=== PATIENT | male | born 1945 | race African-American/Black ===

== ENCOUNTER 2017-02-11 20:19 | Emergency (ER) | payer MEDICARE, MEDICAID ==
[~2017-02-11] VITALS: Ht 182.9 cm; Wt 86.2 kg
[~2017-02-11 20:19] MED LIST: ABILIFY2 MG ORAL; CLONIDINE HCL0.1 MG PO; KLONOPIN1 MG ORAL; METFORMIN HCL500 M1 ORAL; PERCOCET1 TAB ORAL; QUETIAPINE FUMA25 MG ORAL; SERTRALINE HCL50 MG ORAL
[2017-02-11 21:03] VITALS: BP 147/87
--- NOTE | 2017-02-11 21:14 | Emergency Room Report ---
History of Present Illness General Chief Complaint: General Complaint Source: Patient, EMS (ANNE-MARIE SALAZAR M.D.) Present Illness HPI 71 YOM here for suicidal ideation. States he has felt suicidal for 2 months since fiance passed. Denies HUSSEIN WRAY. States his specific plan is to "take a bunch of [place]." Not providing much other info, but he is agreeable for medical clearance and PET. (ANNE-MARIE SALAZAR M.D.) Allergies: Coded Allergies: SULFA (SULFONAMIDE ANTIBIOTICS) (Verified Allergy, Mild, 04/22/14) Uncoded Allergies: Sulfa (Allergy, Mild, 04/22/14) Patient History Past Medical History: unable to obtain Past Surgical History: none Pertinent Family History: none Social History: Denies: alcohol use, drug use, smoking Immunizations: UTD Reviewed Nursing Documentation: PMH: Agreed, PSxH: Agreed (ANNE-MARIE SALAZAR M.D.) Nursing Documentation-PMH Past Medical History: No History, Except For Hx Cardiac Problems: No - ARTHRITIS Hx Hypertension: Yes Hx Diabetes: Yes History Of Psychiatric Problem: Yes - Bipolar 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 (ANNE-MARIE SALAZAR M.D.) Review of Systems All Other Systems: negative except mentioned in HPI (ANNE-MARIE SALAZAR M.D.) Physical Exam Vital Signs Date Time Temp Pulse Resp B/P Pulse Ox O2 Delivery O2 Flow Rate FiO2 02/11/17 20:16 98.1 110 16 126/84 98 Room Air Sp02 EP Interpretation: reviewed, abnormal General Appearance: normal inspection, well appearing, no apparent distress, alert, GCS 15, non-toxic Head: normocephalic, atraumatic Eyes: bilateral eye EOMI, bilateral eye PERRL ENT: normal ENT inspection, hearing grossly normal, normal voice Neck: normal inspection, full range of motion, supple, no bony tend Respiratory: normal inspection, lungs clear, normal breath sounds, no respiratory distress, no retraction, no wheezing Cardiovascular #1: regular rate, rhythm, no edema Gastrointestinal: normal inspection, normal bowel sounds, non tender, soft, no guarding, no hernia Genitourinary: no CVA tenderness Musculoskeletal: normal inspection, back normal, normal range of motion, Victorino' s Sign negative Neurologic: normal inspection, alert, oriented x3, responsive, 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 Speaks in short phrases Skin: normal inspection, normal color, no rash Lymphatic: normal inspection (ANNE-MARIE SALAZAR M.D.) Medical Decision Making Diagnostic Impression: Primary Impression: Suicidal ideation Additional Impression: medically cleared ER Course Will medically clear patient for PET given SI with a specific plan Currently stable in ED VSS. Afebrile Low suspicion for acute medical process at this time PLAN: Labs, med clearance Endorsed to Dr Guerrero to followup labs, address as necessary, and medically clear patient (ANNE-MARIE SALAZAR M.D.) ER Course Please refer to the initial note for the history exam and presentation Patient's blood work at this time is obtained Patient's further medically cleared At this time requires further psychiatric evaluation team consultation pt placed on 5150 by PET team and requires further psychiatric care Labs Test 02/11/17 21:30 02/11/17 22:16 White Blood Count 9.6 K/UL (4.8-10.8) Red Blood Count 4.82 M/UL (4.70-6.10) Hemoglobin 13.7 G/DL (14.2-18.0) Hematocrit 42.9 % (42.0-52.0) Mean Corpuscular Volume 89 FL (80-99) Mean Corpuscular Hemoglobin 28.3 PG (27.0-31.0) Mean Corpuscular Hemoglobin Concent 31.8 G/DL (32.0-36.0) Red Cell Distribution Width 14.2 % (11.6-14.8) Platelet Count 121 K/UL (150-450) Mean Platelet Volume 9.7 FL (6.5-10.1) Neutrophils (%) (Auto) 69.9 % (45.0-75.0) Lymphocytes (%) (Auto) 20.6 % (20.0-45.0) Monocytes (%) (Auto) 7.5 % (1.0-10.0) Eosinophils (%) (Auto) 1.1 % (0.0-3.0) Basophils (%) (Auto) 0.9 % (0.0-2.0) Sodium Level 137 mEQ/L (135-145) Potassium Level 3.7 mEQ/L (3.4-4.9) Chloride Level 94 mEQ/L (98-107) Carbon Dioxide Level 25 mEQ/L (20-30) Anion Gap 18 (5-15) Blood Urea Nitrogen 16 mg/dL (7-23) Creatinine 0.9 mg/dL (0.7-1.2) Estimat Glomerular Filtration Rate mL/min (>60) Glucose Level 148 mg/dL (74-106) Calcium Level 9.8 mg/dL (8.6-10.2) Total Bilirubin 1.6 mg/dL (0.0-1.2) Direct Bilirubin 0.5 mg/dL (0.1-0.3) Aspartate Amino Transf (AST/SGOT) 84 U/L (5-40) Alanine Aminotransferase (ALT/SGPT) 103 U/L (3-41) Alkaline Phosphatase 60 U/L (40-129) Total Protein 7.5 g/dL (6.6-8.7) Albumin 4.1 g/dL (3.5-5.2) Globulin 3.4 g/dL Albumin/Globulin Ratio 1.2 (1.0-2.7) Salicylates Level < 1 mg/dL (10-30) Acetaminophen Level < 10 ug/mL (10-30) Serum Alcohol < 10 mg/dL Urine Color Yellow Urine Appearance Clear Urine pH 5 (4.5-8.0) Urine Specific Sidney 1.020 (1.005-1.035) Urine Protein 2+ (NEGATIVE) Urine Glucose (UA) Negative (NEGATIVE) Urine Ketones 4+ (NEGATIVE) Urine Occult Blood 1+ (NEGATIVE) Urine Nitrite Negative (NEGATIVE) Urine Bilirubin 1+ (NEGATIVE) Urine Ictotest Negative Urine Urobilinogen 8 MG/DL (0.0-1.0) Urine Leukocyte Esterase 1+ (NEGATIVE) Urine RBC 0-2 /HPF (0 - 0) Urine WBC 2-4 /HPF (0 - 0) Urine Squamous Epithelial Cells None /LPF (NONE/OCC) Urine Bacteria Moderate /HPF (NONE) Urine Opiates Screen Negative (NEGATIVE) Urine Barbiturates Screen Negative (NEGATIVE) Phencyclidine (PCP) Screen Negative (NEGATIVE) Urine Amphetamines Screen Negative (NEGATIVE) Urine Benzodiazepines Screen Negative (NEGATIVE) Urine Cocaine Screen Positive (NEGATIVE) Urine Marijuana (THC) Screen Negative (NEGATIVE) (CARLITO CAMACHO D.O.) Last Vital Signs Date Time Temp Pulse Resp B/P Pulse Ox O2 Delivery O2 Flow Rate FiO2 02/11/17 21:03 98.0 105 16 147/87 98 Room Air (ANNE-MARIE SALAZAR M.D.) Status: improved (CARLITO CAMACHO D.O.) Disposition: XFER TO PSYCH HOSP/UNIT Condition: Stable ANNE-MARIE SALAZAR M.D. Feb 11, 2017 21:14 CARLITO CAMACHO D.O. Feb 12, 2017 01:36
[2017-02-11 21:46] LABS: BASOPHILS % (AUTO) 0.9 % (0.0-2.0); EOSINOPHILS % (AUTO) 1.1 % (0.0-3.0); LYMPHOCYTES % (AUTO) 20.6 % (20.0-45.0); MEAN CORPUSCULAR HEMOGLOBIN 28.3 PG (27.0-31.0); MEAN CORPUSCULAR HGB CONC 31.8 G/DL (32.0-36.0); MEAN CORPUSCULAR VOLUME 89 FL (80-99); MEAN PLATELET VOLUME 9.7 FL (6.5-10.1); MONOCYTES % (AUTO) 7.5 % (1.0-10.0); NEUTROPHILS % (AUTO) 69.9 % (45.0-75.0); PLATELET COUNT 121 K/UL (150-450); RED BLOOD COUNT 4.82 M/UL (4.70-6.10); RED CELL DISTRIBUTION WIDTH 14.2 % (11.6-14.8); WHITE BLOOD COUNT 9.6 K/UL (4.8-10.8)
[2017-02-11 21:58] LABS: ACETAMINOPHEN < 10 ug/mL (10-30); ALANINE AMINOTRANSFERASE 103 U/L (3-41); ALBUMIN/GLOBULIN RATIO 1.2 (1.0-2.7); ALCOHOL < 10 mg/dL; ANION GAP 18 (5-15); ASPARTATE AMINO TRANSFERASE 84 U/L (5-40); CALCIUM 9.8 mg/dL (8.6-10.2); CARBON DIOXIDE 25 mEQ/L (20-30); CHLORIDE 94 mEQ/L (98-107); CREATININE 0.9 mg/dL (0.7-1.2); HEMOLYSIS 4; POTASSIUM 3.7 mEQ/L (3.4-4.9); SODIUM 137 mEQ/L (135-145); TOTAL PROTEIN 7.5 g/dL (6.6-8.7)
[2017-02-11 22:23] LABS: BILIRUBIN,DIRECT 0.5 mg/dL (0.1-0.3)
[2017-02-11 22:35] LABS: APPEARANCE,URINE CLEAR; KETONES,URINE 4+ (NEGATIVE); LEUKOCYTE ESTERASE ,URINE 1+ (NEGATIVE); NITRITE,URINE NEGATIVE (NEGATIVE); PH,URINE 5 (4.5-8.0); PROTEIN,URINE 2+ (NEGATIVE); UROBILINOGEN,URINE 8 MG/DL (0.0-1.0)
[2017-02-11 22:40] LABS: RBC,URINE 0-2 /HPF (0 - 0)
[2017-02-11 22:41] LABS: BACTERIA,URINE MODERATE /HPF; ICTOTEST NEGATIVE
[2017-02-12] VITALS (11 sets, daily range): BP systolic 118–140; BP diastolic 73–89
[2017-02-13] VITALS (7 sets, daily range): BP systolic 120–148; BP diastolic 72–87
[2017-02-13] MEDS ORDERED: Milk of Magnesia 30ml Ud ORAL PRN (10:45)
[2017-02-13] MEDS ORDERED: Zolpidem 5mg tab ORAL PRN (10:45)
[2017-02-13] MEDS ORDERED: IBUPROFEN600 MG ORAL (15:05)
--- NOTE | 2017-02-13 18:52 | Cardiology Report ---
APPROVED REPORT EKG Measurement Heart [id number] Normal sinus rhythm Possible Left atrial enlargement Possible Anterior infarct, age undetermined Abnormal ECG
--- NOTE | 2017-02-14 00:48 | History and Physical Report ---
DATE OF ADMISSION: 02/11/2017 CHIEF COMPLAINT AND REASON FOR HOSPITALIZATION: The patient is a 71-year-old male, who is admitted with suicidal ideations. HISTORY OF PRESENT ILLNESS: The patient is a 71-year-old man, who apparently brought himself into the hospital with feeling depression and told in the emergency room physicians that he has suicidal ideations. He was placed on a 5150 hold and will be transferred to a psychiatric facility. The patient admits to feeling depressed. Apparently, his fiancee recently . He was looking apparently to find the location of a friend, was lost, was able to bring himself to [facility] emergency room voluntarily. The patient has a history of back pain and osteoarthritis. He uses [facility] intermittently. He says he is physically feeling well. ALLERGIES: None known. MEDICATIONS: Per the computer, he was on Abilify, Klonopin, clonidine, metformin, oxycodone with Tylenol, Seroquel, and sertraline. He told me he is not taking any medications recently. 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 HABITS: He is a current smoker. Alcohol, social denies any drugs. SURGERIES: Low back surgery and surgery on his feet. SYSTEM REVIEW: HEAD, EYES, EARS, NOSE, AND THROAT: He is blind in his left eye and right eye vision is good. Hearing is good. ENDOCRINE: He denies diabetes or thyroid disease, but there is a listed metformin on his med list. PULMONARY: History of cigarette smoking. Denied shortness of breath or asthma. CARDIAC: Denies angina and mild palpitations. GASTROINTESTINAL: Denies gastrointestinal bleeding, ulcers, or abdominal pain. GENITOURINARY: No dysuria, hematuria, or kidney stones. He has nocturia one to two times. MUSCULOSKELETAL: Arthritis as above. NEUROLOGIC: Denies CVA, syncope, or seizures. PHYSICAL EXAMINATION: GENERAL: The patient is alert, well-developed man, in no acute distress. He is somewhat anxious. VITAL SIGNS: Temperature 98.2 pulse 82, respirations 16, and blood pressure 126/73. HEAD, EYES, EARS, NOSE, AND THROAT: There is a left eye opacity. Hearing is good. Throat is clear. NECK: No adenopathy. LUNGS: Clear. HEART: Regular rhythm. No murmur. ABDOMEN: Soft. No organomegaly. No masses. EXTREMITIES: No edema, cyanosis, or clubbing. No swollen joints. NEUROLOGIC: He is alert and oriented. Speech is clear. There is mild ptosis of the left eyelid and left eye abnormality as above. Ocular motions intact in all directions, mild symmetric, tongue is midline. He moves all extremities equally. LABORATORY DATA: Pertinent labs showed a normal CBC, normal electrolytes, glucose 148, mild elevation of liver enzymes and bilirubin 1.6. Toxicology shows positive cocaine screen. Otherwise, negative. The urinalysis is negative. IMPRESSION: 1. Reported suicidal ideation. 2. Depression. 3. Positive cocaine screen. 4. History of taking multiple medications, not clear if any of these are recent. 5. Possible underlying mood disorder. 6. Possible substance abuse more than the patient admits to. PLAN: The patient is placed on a 5150 hold. Psychiatrist will see the patient. We will observe the patient for any complications of the above. His liver enzymes could be due to substance abuse, alcohol abuse, and he does not have any abdominal pain at this time. So, we will treat the patient symptomatically any further problems. Thank you so much for allowing me to participate in the care of this patient. Brian Barbosa M.D. DR: KENNY JOB#: [id number] CC:
--- NOTE | 2017-02-14 00:58 | Consultation ---
DATE OF CONSULTATION: 02/13/2017 PSYCHIATRIC CONSULTATION: CONSULTING PHYSICIAN: Marina Goddard M.D. ATTENDING PHYSICIAN: Kimberley Jackson M.D. CHIEF COMPLAINT AND HISTORY OF PRESENT ILLNESS: This is a 71-year-old male with history of psychiatric illness, was admitted to the hospital with a chief complaint of suicidal ideation. During the evaluation, there was a description to see whether there is a history that he presented with. First, he stated that he was wandering around a street, looking for his girlfriend, he got lost, and it became very late and dark, therefore he was brought into the emergency room as he was panicky and he was scared and to the emergency room doctor, he stated that he has been feeling suicidal as his fiancee two months ago. During the evaluation, he denied any suicidal or homicidal ideation, depressive, manic, or psychotic symptoms. He stated that he has a psychiatrist, called Dr. Li Christianson that he sees in [place] in every few months. He stated that he has been going to him for the past several years. He currently is not taking any medication and he stated "I am not leaving [place] and I just got some panic attacks at that time and feeling anxious". The patient was placed on 5150 hold by PET team. During the evaluation, he was engaged, cooperative, and appropriate. PAST PSYCHIATRIC HISTORY: He denied any past suicide attempt. He has had one psychiatric hospitalization in 2016, when he saw Dr. Christianson. PAST MEDICAL HISTORY: Significant for hypertension. He is blind on the left side. MEDICATIONS: He was unable to provide any history in regards to his medications. He stated that he does not take any medications. ALLERGIES: Sulfa. SOCIAL HISTORY: The patient has a history of drug use as well as alcohol use. MENTAL STATUS EXAMINATION: The patient is alert and oriented x4. Mood is euthymic. Affect is full range. Thought process was linear and goal oriented. Thought content, no suicidal or homicidal ideation. No psychotic symptoms. Cognition is intact. Insight and judgment are fair. ASSESSMENT: AXIS I Mood disorder, not otherwise specified. AXIS II Deferred. AXIS III As above. AXIS IV Low. AXIS V Global assessment of functioning is 70. PLAN: 1. We will discontinue 5150 hold. 2. The patient was discharged and he will follow with Dr. Christianson at his office in [place]. He did not require any medication. He stated that he does not take any medication at this time. Marina Goddard M.D. DR: Eusebio JOB#: [id number] CC:
[2017-02-14] MEDS ORDERED: ARIPiprazole 2mg tab ORAL SCH (09:00)
[2017-02-14] MEDS ORDERED: Sertraline 50mg tab ORAL SCH (09:00)
== END 2017-02-13 15:19 | disposition home or self-care (01) ==
LOC: EDBD 20:19 → EMR 22:21 → EDBEDREQ 02-13 08:54 → EMR 02-13 15:19
DX: R45.851 Suicidal ideations (principal); I10 Essential (primary) hypertension; E11.9 Type 2 diabetes mellitus without complications; H54.42 Blindness, left eye, normal vision right eye; Z88.2 Allergy status to sulfonamides
CPT/HCPCS: 36415; 80053; 80300; 81003; 82248; 85025; 87086; 93005; 99285; G0480; 80329

== ENCOUNTER 2017-09-02 01:18 | Emergency (ER) | payer MEDICARE, MEDICAID ==
[~2017-09-02] VITALS: Ht 175.3 cm; Wt 81.6 kg
[~2017-09-02 01:18] MED LIST changes: +IBUPROFEN600 MG ORAL
[2017-09-02] MEDS ORDERED: LATUDA120 MG PO (01:30)
[2017-09-02 01:55] VITALS: BP 138/87
--- NOTE | 2017-09-02 03:50 | Emergency Room Report ---
History of Present Illness General Chief Complaint: Behavioral Complaint Source: Patient Present Illness HPI Is a 72-year-old male with history bipolar and cocaine abuse. Patient said he' s been clean for 6 months now. He said he felt depressed and suicidal because he just buried his girlfriend about a month ago. Denies any fever chills denies any nausea vomiting. No particular plan. Denies any other complaint. Said he hasn't been to a hospital for several months. 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 Review of Systems ENT: Denies: sore throat Cardiovascular: Denies: chest pain, palpitations Gastrointestinal/Abdominal: Denies: nausea, vomiting, diarrhea Musculoskeletal: Denies: back problems Skin: Denies: rash Neurological: Denies: LINDER, seizures All Other Systems: negative except mentioned in HPI Physical Exam Vital Signs Date Time Temp Pulse Resp B/P (MAP) Pulse Ox O2 Delivery O2 Flow Rate FiO2 09/02/17 01:24 97.5 71 16 138/87 100 Room Air vitals normal Sp02 EP Interpretation: reviewed, normal General Appearance: alert/responsive, no apparent distress, non-toxic Head: normocephalic, atraumatic Eyes: PERRL, EOMI ENT: oropharynx normal Neck: supple/symm/no masses Respiratory: effort normal, no rhonchi, no wheezing Cardiovascular: no murmur, gallop, rub Gastrointestinal: non-tender, no mass, non-distended, no rebound/guarding, normal bowel sounds Musculoskeletal: gait & station normal Neurologic: oriented x3, sensory intact, motor strength/tone normal Suicide Risk Assessment: Suicidal Ideation: Yes Had intent to initiate attempt: No Pt's plan for suicide attempt: No Has means to complete attempt: No Skin: no rash, normal palpation Medical Decision Making Diagnostic Impression: Primary Impression: Depression Qualified Codes: F32.9 - Major depressive disorder, single episode, unspecified Additional Impressions: Drug abuse Suicidal ideation ER Course Patient presents with alleged suicidal thoughts. He's been here several times and has the same story of his girlfriend recently and causing his depression. He is no longer suicidal. He slept through the night. I suspect that he does want a place to sleep. As he is no longer suicidal we'll discharge home. This patient is a chronic risk of self injury due to poor impulse control, limited coping skills, and judgment intermittently impaired by intoxication. I believe that the available clinical evidence to suggest that these characteristics derived primarily from personality disorder and are likely very stable over time. Hospitalization would likely attenuate risk of self-harm only during long term period, without lasting risk reduction. Serious self-harm , while possible, would likely be inadvertent, and because of impulsivity, and foreseeable. For these reasons, I do not believe hospitalization would provide meaningful reduction in risk of self-harm. Last Vital Signs Date Time Temp Pulse Resp B/P (MAP) Pulse Ox O2 Delivery O2 Flow Rate FiO2 09/02/17 01:55 97.5 76 16 138/87 100 Room Air Status: improved Disposition: HOME, SELF-CARE Condition: Stable Referrals: NOT CHOSEN IPA/,REFERRING (PCP) Patient Instructions: Self-Destructive Behavior Additional Instructions: Stop using drugs. Followup with your DrLalitha in 3-5 days. Followup with your . mental health in a week. Return if worse. DARWIN MAHER M.D. Sep 02, 2017 03:50
[2017-09-02 05:36] VITALS: BP 136/82
== END 2017-09-02 05:51 | disposition home or self-care (01) ==
LOC: EMR 02:00
DX: F32.9 Major depressive disorder, single episode, unspecified (principal); R45.851 Suicidal ideations; F14.10 Cocaine abuse, uncomplicated; I10 Essential (primary) hypertension; E11.9 Type 2 diabetes mellitus without complications; Z88.2 Allergy status to sulfonamides
CPT/HCPCS: 99282

== ENCOUNTER 2017-09-23 07:38 | Emergency (ER) | payer MEDICARE, MEDICAID ==
[~2017-09-23] VITALS: Ht 175.3 cm; Wt 81.6 kg
[~2017-09-23 07:38] MED LIST changes: +LATUDA120 MG PO
[2017-09-23 07:48] VITALS: BP 170/95
[2017-09-23 08:32] LABS: BASOPHILS % (AUTO) 1.1 % (0.0-2.0); EOSINOPHILS % (AUTO) 0.7 % (0.0-3.0); LYMPHOCYTES % (AUTO) 16.3 % (20.0-45.0); MEAN CORPUSCULAR HEMOGLOBIN 29.7 PG (27.0-31.0); MEAN CORPUSCULAR HGB CONC 32.1 G/DL (32.0-36.0); MEAN CORPUSCULAR VOLUME 93 FL (80-99); MEAN PLATELET VOLUME 10.5 FL (6.5-10.1); MONOCYTES % (AUTO) 7.2 % (1.0-10.0); NEUTROPHILS % (AUTO) 74.7 % (45.0-75.0); PLATELET COUNT 152 K/UL (150-450); WHITE BLOOD COUNT 6.9 K/UL (4.8-10.8)
[2017-09-23 08:47] LABS: ALANINE AMINOTRANSFERASE 92 U/L (12-78); ALBUMIN/GLOBULIN RATIO 0.9 (1.0-2.7); ANION GAP 9 mmol/L (5-15); ASPARTATE AMINO TRANSFERASE 63 U/L (15-37); CALCIUM 9.5 MG/DL (8.5-10.1); CARBON DIOXIDE 28 MMOL/L (21-32); CHLORIDE 104 MMOL/L (98-107); POTASSIUM 4.1 MMOL/L (3.5-5.1); SODIUM 141 MMOL/L (136-145); TOTAL PROTEIN 7.8 G/DL (6.4-8.2)
[2017-09-23 08:51] LABS: ACETAMINOPHEN < 10 MCG/ML (10-30); ALCOHOL < 0 mg/dL
[2017-09-23 13:47] VITALS: BP 150/79
[2017-09-23 13:56] VITALS: BP 150/79
--- NOTE | 2017-09-23 15:26 | Emergency Room Report ---
History of Present Illness General Chief Complaint: Behavioral Complaint Source: Patient Present Illness HPI 72-year-old male presents ED for evaluation. Patient states he is feeling depressed and wants to hurt himself. Does not have a plan. States that his 4 months ago and he is having stress in his life. Patient admits to cocaine use. Patient states he is on psychiatric medications but is noncompliant with them. He denies hearing voices. No other aggravating relieving factors. Denies any other associated symptoms Allergies: Coded Allergies: SULFA (SULFONAMIDE ANTIBIOTICS) (Verified Allergy, Mild, 04/22/14) SULFUR (Unverified Allergy, Unknown, 09/23/17) Uncoded Allergies: Sulfa (Allergy, Mild, 04/22/14) Patient History Past Medical History: HTN, CVA/TIA, psych hx Past Surgical History: none Pertinent Family History: none Social History: Reports: drug use, Denies: smoking, alcohol use Immunizations: UTD Reviewed Nursing Documentation: PMH: Agreed, PSxH: Agreed Nursing Documentation-PMH Past Medical History: No History, Except For Hx Cardiac Problems: No - ARTHRITIS Hx Hypertension: Yes Hx Diabetes: Yes History Of Psychiatric Problem: Yes - Bipolar 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 Hx Cerebrovascular Accident: Yes Review of Systems All Other Systems: negative except mentioned in HPI Physical Exam Vital Signs Date Time Temp Pulse Resp B/P (MAP) Pulse Ox O2 Delivery O2 Flow Rate FiO2 09/23/17 07:28 98.6 74 16 170/95 99 Room Air Sp02 EP Interpretation: reviewed, normal General Appearance: no apparent distress, alert, GCS 15, non-toxic Head: normocephalic, atraumatic Eyes: bilateral eye normal inspection, bilateral eye PERRL ENT: hearing grossly normal, normal pharynx, no angioedema, normal voice Neck: full range of motion, supple/symm/no masses Respiratory: chest non-tender, lungs clear, normal breath sounds, speaking full sentences Cardiovascular #1: regular rate, rhythm, no edema Cardiovascular #2: 2+ carotid (R), 2+ carotid (L), 2+ radial (R), 2+ radial (L) , 2+ dorsalis pedis (R), 2+ dorsalis pedis (L) Gastrointestinal: normal bowel sounds, non tender, soft, non-distended, no guarding, no rebound Rectal: deferred Genitourinary: normal inspection, no CVA tenderness Musculoskeletal: back normal, gait/station normal, normal range of motion, non- tender Neurologic: alert, oriented x3, responsive, motor strength/tone normal, sensory intact, speech normal Psychiatric: judgement/insight normal, memory normal, mood/affect normal, no suicidal/homicidal ideation Reflexes: 3+ bicep (R), 3+ bicep (L), 3+ tricep (R), 3+ tricep (L), 3+ knee (R) , 3+ knee (L) Skin: normal color, no rash, warm/dry, well hydrated Lymphatic: no adenopathy Medical Decision Making Diagnostic Impression: Primary Impression: Depression Qualified Codes: F32.9 - Major depressive disorder, single episode, unspecified Additional Impression: Drug abuse ER Course Hospital Course 72-year-old M resents ED feeling depressed and wanted to hurt himself. Differential diagnoses include: Psychosis, EtOH, drug abuse Clinical course patient placed on stretcher. On nurse monitoring. After initial history and physical ordered labs Labs reviewed-electrolytes okay, no leukocytosis, hemoglobin/hematocrit stable, tox panel + cocaine Patient allowed to sleep in ED. On reassessment patient feels better wishes to be discharged. No longer feeling suicidal or depressed. Reviewed EMR patient has been here previously with similar presentation. Patient allowed to sleep and then changes his story. I do not believe patient requires emergent psychiatric evaluation at this time Encouraged patient to take his psychiatric medications as prescribed and not when he feels like it. I also encouraged patient to stop cocaine use i. I feel this is a highly complex case requiring extensive working including EKG/Rhythm strip, Xray/CT/US, Blood/urine lab work, repeat exams while in ED, and administration of strong opiates/narcotics for pain control, admission to hospital or close patient follow up. Diagnosis -depression, drug abuse Stable and discharged to home. Followup with PMD. Return to ED if symptoms recur or worsen Labs Test 09/23/17 08:00 White Blood Count 6.9 K/UL (4.8-10.8) Red Blood Count 4.90 M/UL (4.70-6.10) Hemoglobin 14.6 G/DL (14.2-18.0) Hematocrit 45.3 % (42.0-52.0) Mean Corpuscular Volume 93 FL (80-99) Mean Corpuscular Hemoglobin 29.7 PG (27.0-31.0) Mean Corpuscular Hemoglobin Concent 32.1 G/DL (32.0-36.0) Red Cell Distribution Width 15.0 % (11.6-14.8) Platelet Count 152 K/UL (150-450) Mean Platelet Volume 10.5 FL (6.5-10.1) Neutrophils (%) (Auto) 74.7 % (45.0-75.0) Lymphocytes (%) (Auto) 16.3 % (20.0-45.0) Monocytes (%) (Auto) 7.2 % (1.0-10.0) Eosinophils (%) (Auto) 0.7 % (0.0-3.0) Basophils (%) (Auto) 1.1 % (0.0-2.0) Sodium Level 141 MMOL/L (136-145) Potassium Level 4.1 MMOL/L (3.5-5.1) Chloride Level 104 MMOL/L (98-107) Carbon Dioxide Level 28 MMOL/L (21-32) Anion Gap 9 mmol/L (5-15) Blood Urea Nitrogen 19 mg/dL (7-18) Creatinine 1.0 MG/DL (0.55-1.30) Estimat Glomerular Filtration Rate mL/min (>60) Glucose Level 203 MG/DL (74-106) Calcium Level 9.5 MG/DL (8.5-10.1) Total Bilirubin 0.8 MG/DL (0.2-1.0) Aspartate Amino Transf (AST/SGOT) 63 U/L (15-37) Alanine Aminotransferase (ALT/SGPT) 92 U/L (12-78) Alkaline Phosphatase 72 U/L (46-116) Total Protein 7.8 G/DL (6.4-8.2) Albumin 3.6 G/DL (3.4-5.0) Globulin 4.2 g/dL Albumin/Globulin Ratio 0.9 (1.0-2.7) Salicylates Level < 2.8 ug/mL (2.8-20) Urine Opiates Screen Negative (NEGATIVE) Acetaminophen Level < 10 MCG/ML (10-30) Urine Barbiturates Screen Negative (NEGATIVE) Phencyclidine (PCP) Screen Negative (NEGATIVE) Urine Amphetamines Screen Negative (NEGATIVE) Urine Benzodiazepines Screen Negative (NEGATIVE) Urine Cocaine Screen Positive (NEGATIVE) Urine Marijuana (THC) Screen Negative (NEGATIVE) Serum Alcohol < 0 mg/dL Last Vital Signs Date Time Temp Pulse Resp B/P (MAP) Pulse Ox O2 Delivery O2 Flow Rate FiO2 09/23/17 14:02 98.5 09/23/17 13:56 83 17 150/79 99 Room Air Status: improved Disposition: HOME, SELF-CARE Condition: Stable Referrals: NOT CHOSEN IPA/,REFERRING (PCP) Patient Instructions: Stimulant Use Disorder-Cocaine JUANJOSE CONNER M.D. Sep 23, 2017 15:26
== END 2017-09-23 14:09 | disposition home or self-care (01) ==
LOC: EDBD 07:38 → EMR 08:53
DX: F32.9 Major depressive disorder, single episode, unspecified (principal); Z91.14 Patient's other noncompliance with medication regimen; Z88.2 Allergy status to sulfonamides; I10 Essential (primary) hypertension; E11.9 Type 2 diabetes mellitus without complications; F31.9 Bipolar disorder, unspecified; H54.40 Blindness, one eye, unspecified eye; Z86.73 Personal history of transient ischemic attack (TIA), and cerebral infarction without residual deficits
CPT/HCPCS: 36415; 80053; 80307; 85025; 99283; G0480; 80329

== ENCOUNTER 2017-10-23 02:09 | Emergency (ER) | payer MEDICARE, MEDICAID ==
[~2017-10-23] VITALS: Ht 175.3 cm; Wt 81.6 kg
--- NOTE | 2017-10-23 02:16 | Emergency Room Report ---
History of Present Illness General Source: Patient (Gerald Gibson) Present Illness HPI Patient is a 72-year-old male presented to increased depression and suicidal thoughts. Patient had prior history of psychiatric disease and is currently on Latuda as well as the medications for rheumatoid arthritis. Patient reports having had gradual onset of depression over the past few months. He reports having intermittent suicidal thoughts.He denies auditory or visual hallucinations. 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 Hx Cerebrovascular Accident: Yes (Gerald Gibson) Review of Systems All Other Systems: negative except mentioned in HPI (Gerald Gibson) Physical Exam Sp02 EP Interpretation: reviewed, normal General Appearance: alert/responsive, no apparent distress, GCS 15, non-toxic Head: atraumatic Eyes: lids + conjunctiva normal, other - left eye blind ENT: hearing intact, no angioedema Neck: supple/symm/no masses, no meningismus Respiratory: effort normal, no wheezing, chest symmetrical Cardiovascular: regular rate, rhythm, no edema Cardiovascular #2: 2+ carotid (R), 2+ carotid (L), 2+ dorsalis pedis (R), 2+ dorsalis pedis (L) Gastrointestinal: non-tender, no mass, non-distended, no rebound/guarding, normal bowel sounds Musculoskeletal: strength & tone normal, normal ROM, non-tender, other - antalgic gait Neurologic: normal inspection, CN II-XII intact, oriented x3, sensory intact, normal speech Skin: no rash, well hydrated Lymphatic: normal inspection (Gerald Gibson) Medical Decision Making Diagnostic Impression: Primary Impression: Drug abuse Additional Impression: Depression Qualified Codes: F32.89 - Other specified depressive episodes ER Course Patient presented for suicidal thoughts. Differential diagnosis included wasn' t limited to the substance abuse,malingering, depression, psychosis among others.Because of complexity of patient's case laboratory testing were ordered. Laboratory testing showed evidence of a recent cocaine use as well as marijuana. The patient's medical record was reviewed and he was noted to have similar episodes in which he stated he was suicidal with a similar story a recent . Patient appears to be calm and cooperative. He does not appear to be responding to internal stimuli. Laboratory testing was otherwise unremarkable. The patient will be observed in the emergency department until morning. The patient reportedly had similar visits in which he was noted to have no suicidal thoughts after sleeping and more sober Labs Test 10/23/17 02:30 10/23/17 03:22 White Blood Count 5.5 K/UL (4.8-10.8) Red Blood Count 4.43 M/UL (4.70-6.10) Hemoglobin 12.9 G/DL (14.2-18.0) Hematocrit 39.6 % (42.0-52.0) Mean Corpuscular Volume 89 FL (80-99) Mean Corpuscular Hemoglobin 29.1 PG (27.0-31.0) Mean Corpuscular Hemoglobin Concent 32.6 G/DL (32.0-36.0) Red Cell Distribution Width 13.1 % (11.6-14.8) Platelet Count 140 K/UL (150-450) Mean Platelet Volume 10.4 FL (6.5-10.1) Neutrophils (%) (Auto) 58.2 % (45.0-75.0) Lymphocytes (%) (Auto) 28.9 % (20.0-45.0) Monocytes (%) (Auto) 9.0 % (1.0-10.0) Eosinophils (%) (Auto) 2.8 % (0.0-3.0) Basophils (%) (Auto) 1.1 % (0.0-2.0) Sodium Level 143 MMOL/L (136-145) Potassium Level 3.7 MMOL/L (3.5-5.1) Chloride Level 107 MMOL/L (98-107) Carbon Dioxide Level 27 MMOL/L (21-32) Anion Gap 9 mmol/L (5-15) Blood Urea Nitrogen 20 mg/dL (7-18) Creatinine 1.1 MG/DL (0.55-1.30) Estimat Glomerular Filtration Rate mL/min (>60) Glucose Level 238 MG/DL (74-106) Calcium Level 8.6 MG/DL (8.5-10.1) Total Bilirubin 0.5 MG/DL (0.2-1.0) Aspartate Amino Transf (AST/SGOT) 71 U/L (15-37) Alanine Aminotransferase (ALT/SGPT) 100 U/L (12-78) Alkaline Phosphatase 80 U/L (46-116) Total Protein 7.1 G/DL (6.4-8.2) Albumin 3.2 G/DL (3.4-5.0) Globulin 3.9 g/dL Albumin/Globulin Ratio 0.8 (1.0-2.7) Salicylates Level 4.6 ug/mL (2.8-20) Acetaminophen Level < 2 MCG/ML (10-30) Serum Alcohol < 3 mg/dL Urine Opiates Screen Negative (NEGATIVE) Urine Barbiturates Screen Negative (NEGATIVE) Phencyclidine (PCP) Screen Negative (NEGATIVE) Urine Amphetamines Screen Negative (NEGATIVE) Urine Benzodiazepines Screen Negative (NEGATIVE) Urine Cocaine Screen Positive (NEGATIVE) Urine Marijuana (THC) Screen Positive (NEGATIVE) (Gerald Gibson) ER Course Patient signed out to me by Dr. Gibson at 6:30 AM On reassessment patient sleeping very deeply in treatment room Upon awakening patient upset that he was woke up Requesting food tray, which was provided Denies SI, HI, AVH Review of labs show urine toxicology positive for cocaine and marijuana Patient has history of polysubstance abuse in the past which has led him to endorses S. I when coming to the ER Patient had told her she was "looking for a place to sleep" because he was cold. Patient already on medication for depression, has psychiatrist Low suspicion for need for a psychiatric consult\\evaluation for admission to psychiatric facility at this point Any SI patient endorsed upon arrival likely due to polysubstance abuse We'll discharge home (ANNE-MARIE SALAZAR M.D.) Status: improved (Gerald Gibson) Status: improved (ANNE-MARIE SALAZAR M.D.) Disposition: HOME, SELF-CARE Condition: Stable Gerald Gibson Oct 23, 2017 02:16 ANNE-MARIE SALAZAR M.D. Oct 23, 2017 07:49
[2017-10-23 02:25] VITALS: BP 139/87
[2017-10-23 02:42] LABS: BASOPHILS % (AUTO) 1.1 % (0.0-2.0); EOSINOPHILS % (AUTO) 2.8 % (0.0-3.0); LYMPHOCYTES % (AUTO) 28.9 % (20.0-45.0); MEAN CORPUSCULAR HEMOGLOBIN 29.1 PG (27.0-31.0); MEAN CORPUSCULAR HGB CONC 32.6 G/DL (32.0-36.0); MEAN CORPUSCULAR VOLUME 89 FL (80-99); MEAN PLATELET VOLUME 10.4 FL (6.5-10.1); NEUTROPHILS % (AUTO) 58.2 % (45.0-75.0); PLATELET COUNT 140 K/UL (150-450); RED BLOOD COUNT 4.43 M/UL (4.70-6.10); RED CELL DISTRIBUTION WIDTH 13.1 % (11.6-14.8); WHITE BLOOD COUNT 5.5 K/UL (4.8-10.8)
[2017-10-23 02:54] LABS: ANION GAP 9 mmol/L (5-15); CALCIUM 8.6 MG/DL (8.5-10.1); CARBON DIOXIDE 27 MMOL/L (21-32); CHLORIDE 107 MMOL/L (98-107); CREATININE 1.1 MG/DL (0.55-1.30); POTASSIUM 3.7 MMOL/L (3.5-5.1); SODIUM 143 MMOL/L (136-145)
[2017-10-23 02:58] LABS: ALANINE AMINOTRANSFERASE 100 U/L (12-78); ALBUMIN/GLOBULIN RATIO 0.8 (1.0-2.7); ASPARTATE AMINO TRANSFERASE 71 U/L (15-37); TOTAL PROTEIN 7.1 G/DL (6.4-8.2)
[2017-10-23 03:04] LABS: ACETAMINOPHEN < 2 MCG/ML (10-30); ALCOHOL < 3 mg/dL
[2017-10-23 04:25] VITALS: BP 132/84
[2017-10-23 07:15] VITALS: BP 146/73
[2017-10-23 08:05] VITALS: BP 133/72
== END 2017-10-23 08:10 | disposition home or self-care (01) ==
LOC: EDUNIT# 02:09 → EDBD 02:09 → EMR 02:53
DX: F14.10 Cocaine abuse, uncomplicated (principal); F12.10 Cannabis abuse, uncomplicated; F32.9 Major depressive disorder, single episode, unspecified; I10 Essential (primary) hypertension; E11.9 Type 2 diabetes mellitus without complications; M06.9 Rheumatoid arthritis, unspecified; H54.40 Blindness, one eye, unspecified eye; Z88.2 Allergy status to sulfonamides; Z79.899 Other long term (current) drug therapy
CPT/HCPCS: 36415; 80053; 80307; 85025; 99283; G0480; 80329

== ENCOUNTER 2017-12-19 01:40 | Emergency (ER) | payer MEDICARE, MEDICAID ==
[~2017-12-19] VITALS: Ht 177.8 cm; Wt 81.6 kg
[2017-12-19] MEDS ORDERED: NORCO 10-325 T1 EACH ORAL (01:44)
[2017-12-19 01:55] VITALS: BP 140/60
--- NOTE | 2017-12-19 01:55 | Emergency Room Report ---
History of Present Illness General Chief Complaint: Behavioral Complaint Source: Patient Present Illness HPI [id number] [address] from street "because bus was taking too long." Lives at home with ashlyn, got "Scared" because he was particularly anxious/ panic attack after 's sister came to town, accusing him of being at fault for his 's 2 months ago from lung cancer. Patient has known history of depression, compliant with latuda, zoloft Denies current ETOH, drug use States hasnt done cocaine since October Multiple ER visits in the past for similar reasons Currently denies SI, HI, AVH Denies chest pain, SOB, palpitations, fever/chills to name a few Allergies: Coded Allergies: SULFA (SULFONAMIDE ANTIBIOTICS) (Verified Allergy, Mild, 12/19/17) SULFUR (Unverified Allergy, Unknown, 12/19/17) Patient History Past Medical History: psych hx Past Surgical History: none Pertinent Family History: none Social History: Denies: smoking, alcohol use, drug use Immunizations: UTD Reviewed Nursing Documentation: PMH: Agreed, PSxH: Agreed Nursing Documentation-PMH Past Medical History: No History, Except For Hx Cardiac Problems: No - ARTHRITIS Hx Hypertension: Yes Hx Diabetes: Yes 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 Hx Cerebrovascular Accident: Yes Review of Systems All Other Systems: negative except mentioned in HPI Physical Exam Vital Signs Date Time Temp Pulse Resp B/P (MAP) Pulse Ox O2 Delivery O2 Flow Rate FiO2 12/19/17 01:38 80 16 140/60 99 Room Air Sp02 EP Interpretation: reviewed, normal General Appearance: normal inspection, well appearing, no apparent distress, alert, GCS 15, non-toxic Head: normocephalic, atraumatic Eyes: bilateral eye PERRL, bilateral eye EOMI ENT: normal ENT inspection, hearing grossly normal, normal pharynx, no angioedema, normal voice, TMs + canals normal, uvula midline, moist mucus membranes Neck: normal inspection, full range of motion, supple, thyroid normal, no meningismus, no bony tend Respiratory: normal inspection, lungs clear, normal breath sounds, no rhonchi, no respiratory distress, no retraction, no accessory muscle use, no wheezing, speaking full sentences Cardiovascular #1: regular rate, rhythm, no edema, no JVD, normal capillary refill Gastrointestinal: normal inspection, normal bowel sounds, non tender, soft, no mass, no peritonitis, non-distended, no guarding, no hernia, no pulsatile mass Genitourinary: no CVA tenderness Musculoskeletal: normal inspection, back normal, normal range of motion, no calf tenderness, pelvis stable, Victorino's Sign negative Neurologic: normal inspection, alert, oriented x3, responsive, near 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 III-XII nml as tested, motor strength/tone normal, cerebellar normal, normal gait, speech normal, other - Ambulates with cane Psychiatric: normal inspection, judgement/insight normal, mood/affect normal, no suicidal/homicidal ideation, no delusions, depressed affect Skin: normal inspection, normal color, no rash Lymphatic: normal inspection, no adenopathy Medical Decision Making Diagnostic Impression: Primary Impression: Depression Qualified Codes: F33.0 - Major depressive disorder, recurrent, mild ER Course Patient with known depression ?acute anxiety d/t 's recent passing ?panic attack at home, being home alone VSS, Afebrile No SI, HI, AVH Was given PO ativan in ED Observed for a bit of time DC home when he felt better ER course: Patient has remained stable during ED stay. Disposition: Patient is to be discharged to home. Understands to return to ER if he feels like hurting himself, others. Patient is instructed to follow up with their primary care doctor within 5 days. Strict return precautions discussed with patient such as fever, chills, worsening/severe pain, nausea, vomiting, which may indicate severe illness. Patient verbalizes understanding and agrees with plan. Please note that this Emergency Department Report was dictated using [employer] assistant technology software, occasionally this can lead to erroneous entry secondary to interpretation by the dictation equipment Last Vital Signs Date Time Temp Pulse Resp B/P (MAP) Pulse Ox O2 Delivery O2 Flow Rate FiO2 12/19/17 01:38 80 16 140/60 99 Room Air Status: improved Disposition: HOME, SELF-CARE ANNE-MARIE SALAZAR M.D. Dec 19, 2017 01:55
[2017-12-19] MEDS ORDERED: LORazepam 0.5mg tab ORAL ONE (02:00)
[2017-12-19 02:55] VITALS: BP 140/60
== END 2017-12-19 02:57 | disposition home or self-care (01) ==
LOC: EDBD 01:40 → EMR 01:58
DX: F33.0 Major depressive disorder, recurrent, mild (principal); Z88.2 Allergy status to sulfonamides; M19.90 Unspecified osteoarthritis, unspecified site; I10 Essential (primary) hypertension; E11.9 Type 2 diabetes mellitus without complications; Z86.73 Personal history of transient ischemic attack (TIA), and cerebral infarction without residual deficits
CPT/HCPCS: 99283

== ENCOUNTER 2018-04-16 20:17 | Emergency (ER) | payer MEDICARE, MEDICAID ==
[~2018-04-16] VITALS: Ht 175.3 cm; Wt 82.1 kg
[~2018-04-16 20:17] MED LIST changes: +NORCO 10-325 T1 EACH ORAL
--- NOTE | 2018-04-16 20:57 | Emergency Room Report ---
History of Present Illness General Chief Complaint: Generalized Weakness Source: Patient, Medical Record Present Illness HPI The patient presents with weakness. He was hospitalized 5 days ago and then transferred to a rehabilitation facility [facility]. He signed out AGAINST MEDICAL ADVICE from there "to take care of his social security". He's had recurring falling episodes since that time. He had a splint on his right hand for fracture which he removed himself. He still has pain in his hand there and weakness in the right-hand side. In the past the patient's abused cocaine and alcohol. He still smokes. He denies doing drugs recently. The patient has a nonproductive cough. Denies chest pain, nausea, vomiting, diarrhea, dysuria. The weakness is generalized. He has arthritis in his ankles and feet. This causes him to have pain when he is walking. (Patient was seen ambulating into the ED and up to the registration desk without difficulty.) One of his diagnoses is diabetic neuropathy, however, no diabetic medicines noted. 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 Head: normocephalic, atraumatic Eyes: left eye abnormal pupil - Opacity; bilateral eye Scleral Injection ENT: moist mucus membranes Neck: supple Respiratory: lungs clear, normal breath sounds Cardiovascular #1: regular rate, rhythm Cardiovascular #2: 2+ radial (R) Gastrointestinal: normal inspection, normal bowel sounds, non tender, no mass, non-distended Musculoskeletal: back normal, normal range of motion, swelling, tender - Right hand MCPs and little finger tenderness to palpation with decreased range of motion. Neurologic: alert, oriented x3, motor strength/tone normal, DTRs symmetric, sensory intact, speech normal, motor weakness - R hand due to pain Psychiatric: depressed affect Skin: normal inspection, warm/dry Medical Decision Making Diagnostic Impression: Primary Impression: Multiple falls Additional Impressions: Finger fracture, right Qualified Codes: S62.646D - Nondisplaced fracture of proximal phalanx of right little finger, subsequent encounter for fracture with routine healing Cocaine abuse Neuropathy Finger fracture Qualified Codes: S62.644D - Nondisplaced fracture of proximal phalanx of right ring finger, subsequent encounter for fracture with routine healing ER Course Patient presents with weakness and post multiple falls. He recently left AGAINST MEDICAL ADVICE from a rehabilitation facility. Differential includes electrolyte abnormality, chronic weakness, polymyalgia rheumatica, dermatomyositis, exacerbation of neuropathy, drug abuse, non-compliance amongst others. Evaluation will be EKG, labs including tox screen. There is a nonfocal neurologic exam and therefore he does not need a CT scan at that of the head at this time. We will re-x-ray his hand and most likely need to splinted again. EKG no injury. CXR clear. Hand film with fractures ring and little fingers. Labs remarkable for + tox screen. Splint applied by tech. Position excellent and neurovasc normal. Considering admission but patient clearly ambulatory. Consider cocaine abuse contributing to weakness. Patient stable for outpatient observation and treatment. Laboratory Tests Test 04/16/18 21:15 04/16/18 22:00 White Blood Count 6.6 K/UL (4.8-10.8) Red Blood Count 4.59 M/UL (4.70-6.10) L Hemoglobin 12.8 G/DL (14.2-18.0) L Hematocrit 39.3 % (42.0-52.0) L Mean Corpuscular Volume 85 FL (80-99) Mean Corpuscular Hemoglobin 27.8 PG (27.0-31.0) Mean Corpuscular Hemoglobin Concent 32.5 G/DL (32.0-36.0) Red Cell Distribution Width 13.4 % (11.6-14.8) Platelet Count 120 K/UL (150-450) L Mean Platelet Volume 10.0 FL (6.5-10.1) Neutrophils (%) (Auto) 56.1 % (45.0-75.0) Lymphocytes (%) (Auto) 31.3 % (20.0-45.0) Monocytes (%) (Auto) 8.5 % (1.0-10.0) Eosinophils (%) (Auto) 2.5 % (0.0-3.0) Basophils (%) (Auto) 1.6 % (0.0-2.0) Erythrocyte Sedimentation Rate 25 MM/HR (0-20) H Sodium Level 137 MMOL/L (136-145) Potassium Level 4.2 MMOL/L (3.5-5.1) Chloride Level 104 MMOL/L (98-107) Carbon Dioxide Level 26 MMOL/L (21-32) Anion Gap 7 mmol/L (5-15) Blood Urea Nitrogen 21 mg/dL (7-18) H Creatinine 1.0 MG/DL (0.55-1.30) Estimate Glomerular Filtration Rate mL/min (>60) Glucose Level 156 MG/DL (74-106) H Calcium Level 9.2 MG/DL (8.5-10.1) Total Bilirubin 0.3 MG/DL (0.2-1.0) Aspartate Amino Transferase (AST) 51 U/L (15-37) H Alanine Aminotransferase (ALT) 78 U/L (12-78) Alkaline Phosphatase 72 U/L (46-116) Total Creatine Kinase 155 U/L (26-308) Troponin I 0.004 ng/mL (0.000-0.056) Total Protein 7.4 G/DL (6.4-8.2) Albumin 3.3 G/DL (3.4-5.0) L Globulin 4.1 g/dL Albumin/Globulin Ratio 0.8 (1.0-2.7) L Salicylates Level 1.2 ug/mL (2.8-20) L Acetaminophen Level < 2 MCG/ML (10-30) L Serum Alcohol < 3 mg/dL Urine Color Yellow Urine Appearance Slightly cloudy Urine pH 6 (4.5-8.0) Urine Specific [place] 1.020 (1.005-1.035) Urine Protein 1+ (NEGATIVE) H Urine Glucose (UA) 1+ (NEGATIVE) H Urine Ketones Negative (NEGATIVE) Urine Occult Blood Negative (NEGATIVE) Urine Nitrite Negative (NEGATIVE) Urine Bilirubin Negative (NEGATIVE) Urine Urobilinogen 4 MG/DL (0.0-1.0) H Urine Leukocyte Esterase 1+ (NEGATIVE) H Urine RBC 0 /HPF (0 - 0) Urine WBC 2-4 /HPF (0 - 0) Urine Squamous Epithelial Cells Occasional /LPF Urine Bacteria Few /HPF (NONE) Urine Mucus Many /LPF (NONE/OCC) H Urine Opiates Screen Negative (NEGATIVE) Urine Barbiturates Screen Negative (NEGATIVE) Phencyclidine (PCP) Screen Negative (NEGATIVE) Urine Amphetamines Screen Negative (NEGATIVE) Urine Benzodiazepines Screen Negative (NEGATIVE) Urine Cocaine Screen Negative (NEGATIVE) Urine Marijuana (THC) Screen Negative (NEGATIVE) EKG Diagnostic Results Rate: normal Rhythm: NSR ST Segments: no acute changes Rhythm Strip Diag. Results EP Interpretation: yes Rhythm: NSR, no PVC's, no ectopy Chest X-Ray Diagnostic Results Chest X-Ray Diagnostic Results : Chest X-Ray Ordered: Yes # of Views/Limited/Complete: 1 View Indication: Other EP Interpretation: Yes Interpretation: no consolidation, no effusion, no pneumothorax Impression: No acute disease Electronically Signed by: Electronically signed by Stanford Crandall MD Other X-Ray Diagnostic Results Other X-Ray Diagnostic Results : # of Views/Limited Vs Complete: 3 View Indication: Other EP Interpretation: Yes Interpretation: other - fractures of ring and little fingers, sts Impression: Other Electronically Signed by: Electronically signed by Stanford Crandall MD Last Vital Signs Date Time Temp Pulse Resp B/P (MAP) Pulse Ox O2 Delivery O2 Flow Rate FiO2 04/16/18 23:15 85 17 144/77 99 Room Air 04/16/18 21:32 97.9 97.9 Status: improved Disposition: HOME, SELF-CARE Condition: Improved Scripts Ibuprofen* (MOTRIN*) 600 Mg Tablet 600 MG ORAL Q6H PRN for For Pain, #20 TAB Prov: Stanford Crandall M.D. 04/16/18 Stanford Crandall M.D. April 16, 2018 20:57
[2018-04-16 21:26] LABS: BASOPHILS % (AUTO) 1.6 % (0.0-2.0); EOSINOPHILS % (AUTO) 2.5 % (0.0-3.0); HEMATOCRIT 39.3 % (42.0-52.0); HEMOGLOBIN 12.8 G/DL (14.2-18.0); LYMPHOCYTES % (AUTO) 31.3 % (20.0-45.0); MEAN CORPUSCULAR VOLUME 85 FL (80-99); MONOCYTES % (AUTO) 8.5 % (1.0-10.0); NEUTROPHILS % (AUTO) 56.1 % (45.0-75.0); PLATELET COUNT 120 K/UL (150-450); RED BLOOD COUNT 4.59 M/UL (4.70-6.10); RED CELL DISTRIBUTION WIDTH 13.4 % (11.6-14.8); WHITE BLOOD COUNT 6.6 K/UL (4.8-10.8)
[2018-04-16 21:32] VITALS: BP 135/81
[2018-04-16 21:38] LABS: ANION GAP 7 mmol/L (5-15); BLOOD UREA NITROGEN 21 mg/dL (7-18); CALCIUM 9.2 MG/DL (8.5-10.1); CARBON DIOXIDE 26 MMOL/L (21-32); CHLORIDE 104 MMOL/L (98-107); POTASSIUM 4.2 MMOL/L (3.5-5.1); SODIUM 137 MMOL/L (136-145)
[2018-04-16 21:42] LABS: ALANINE AMINOTRANSFERASE 78 U/L (12-78); ALBUMIN 3.3 G/DL (3.4-5.0); ALBUMIN/GLOBULIN RATIO 0.8 (1.0-2.7); ALKALINE PHOSPHATASE 72 U/L (46-116); ASPARTATE AMINO TRANSFERASE 51 U/L (15-37); BILIRUBIN,TOTAL 0.3 MG/DL (0.2-1.0); CREATINE KINASE 155 U/L (26-308)
--- NOTE | 2018-04-16 22:12 | Diagnostic Imaging Report ---
EXAM: XR Chest, 1 View CLINICAL HISTORY: TRAUMA TECHNIQUE: Frontal view of the chest. COMPARISON: No relevant prior studies available. FINDINGS: Lungs: Unremarkable. No consolidation. Pleural space: Unremarkable. No pneumothorax. Heart: Unremarkable. No cardiomegaly. Mediastinum: Unremarkable. Bones/joints: Unremarkable. IMPRESSION: Normal chest x-ray.
--- NOTE | 2018-04-16 22:16 | Diagnostic Imaging Report ---
EXAM: XR Right Hand Complete, 3 or More Views CLINICAL HISTORY: TRAUMA TECHNIQUE: Frontal, lateral and oblique views of the right hand. COMPARISON: No relevant prior studies available. FINDINGS: Bones/joints: Displaced fracture at the proximal neck of the fifth proximal phalanx. Displaced intra-articular fracture of the distal fifth proximal phalanx. No dislocation. Soft tissues: Unremarkable. No radiopaque foreign body. Other findings: IMPRESSION: 1. Displaced fracture at the proximal neck of the fifth proximal phalanx. 2. Displaced intra-articular fracture of the distal fifth proximal phalanx.
[2018-04-16 22:17] LABS: APPEARANCE,URINE SLIGHTLY CLOUDY; BILIRUBIN, URINE NEGATIVE (NEGATIVE); GLUCOSE, URINE (UA) 1+ (NEGATIVE); KETONES,URINE NEGATIVE (NEGATIVE); LEUKOCYTE ESTERASE ,URINE 1+ (NEGATIVE); NITRITE,URINE NEGATIVE (NEGATIVE); PH,URINE 6 (4.5-8.0); PROTEIN,URINE 1+ (NEGATIVE); UROBILINOGEN,URINE 4 MG/DL (0.0-1.0)
[2018-04-16 22:19] LABS: COLOR,URINE YELLOW
[2018-04-16] MEDS ORDERED: IBUPROFEN600 MG ORAL (23:05)
[2018-04-16 23:15] VITALS: BP 144/77
--- NOTE | 2018-04-18 23:15 | Cardiology Report ---
APPROVED REPORT EKG Measurement Heart [id number] Normal sinus rhythm Cannot rule out Anterior infarct, age undetermined Abnormal ECG
== END 2018-04-16 23:15 | disposition home or self-care (01) ==
LOC: EMR 21:04 → CANBEDREQ 23:05 → EMR 23:15
DX: S62.646D Nondisplaced fracture of proximal phalanx of right little finger, subsequent encounter for fracture with routine healing (principal); S62.644D Nondisplaced fracture of proximal phalanx of right ring finger, subsequent encounter for fracture with routine healing; G62.9 Polyneuropathy, unspecified; F14.10 Cocaine abuse, uncomplicated; R29.6 Repeated falls; M19.90 Unspecified osteoarthritis, unspecified site; Z86.73 Personal history of transient ischemic attack (TIA), and cerebral infarction without residual deficits; H54.40 Blindness, one eye, unspecified eye; F17.200 Nicotine dependence, unspecified, uncomplicated; Z88.2 Allergy status to sulfonamides
CPT/HCPCS: 36415; 71045; 73130; 80053; 80307; 81003; 82550; 84484; 85025; 85651; 93005; 96360; 96374; 96375; 99284; G0480; 80329

== ENCOUNTER 2018-04-24 14:25 | Emergency (ER) | payer MEDICARE, MEDICAID ==
[~2018-04-24] VITALS: Ht 175.3 cm; Wt 81.6 kg
[2018-04-24 14:41] VITALS: BP 134/82
--- NOTE | 2018-04-24 15:29 | Emergency Room Report ---
History of Present Illness General Chief Complaint: Pain Source: EMS Present Illness HPI 72-year-old male patient presents ER brought in by ambulance complaining of weakness in his back and legs bilaterally. Reports history of similar symptoms in the past. [place] and he fell. Denies dizziness or loss of consciousness. denies hitting his head. reports fell forward, denies pain in bilateral upper extremities. Reports a history of multiple falls in the past. He was recently seen in this ER in other hospital for similar symptoms in the past. Denies bowel or bladder incontinence. Denies pain radiating down legs from back. reports history of back surgery, states that he had to to of his vertebrae fused. Denies acute injury or trauma. Denies other acute symptoms at this time. Paramedics report that patient was ambulatory when they first found him. Reports injury to right pinky finger, reports splint fell off, needs new splint. Reports has not followed up with PCP or specialist for further treatment. 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 Hx Cerebrovascular Accident: Yes Review of Systems All Other Systems: negative except mentioned in HPI Physical Exam Vital Signs Date Time Temp Pulse Resp B/P (MAP) Pulse Ox O2 Delivery O2 Flow Rate FiO2 04/24/18 14:15 97.2 78 20 134/82 98 Room Air 97.2 Sp02 EP Interpretation: reviewed, normal General Appearance: well appearing, no apparent distress, alert, GCS 15, non- toxic Head: normocephalic, atraumatic ENT: hearing grossly normal, normal pharynx, no angioedema, normal voice, uvula midline, moist mucus membranes Neck: full range of motion Respiratory: lungs clear, normal breath sounds, no rhonchi, no respiratory distress, no accessory muscle use, no wheezing, speaking full sentences Cardiovascular #1: regular rate, rhythm, no edema Gastrointestinal: non tender, soft, no mass, non-distended, no guarding, no rebound Musculoskeletal: back normal, digits/nails normal, gait/station normal, normal range of motion, non-tender, no calf tenderness, decreased range of motion - right pinky finger, swelling, other - no bony tenderness, no spinal stepoff, tender - right small finger Neurologic: alert, oriented x3, responsive, motor strength/tone normal, SLR negative, sensory intact Psychiatric: mood/affect normal Reflexes: 2+ knee (R), 2+ knee (L) Skin: no rash Medical Decision Making PA Attestation Dr. Curtis is my supervising Physician whom patient management has been discussed with. Diagnostic Impression: Primary Impression: Multiple falls Additional Impressions: Spondylosis Lumbar disc disease Foraminal stenosis of lumbar region Injury of little finger ER Course Pt presents to ED c/o back pain. DDX considered but are not limited to sprain, strain, cauda equina, epidural abscess, AAA, spinal cord compression, stenosis, herniated disc. Low suspicion for cauda equina, no bowel or bladder incontinence or retention. No fever, nontoxic appearing, no radiation of pain, low suspicion for epidural mass. No abdominal pain, no blood pressure elevation, nontoxic appearing, low suspicion for AAA. Patient reports did not hit head, negative Raccoon eyes, negative Onofre sign, patient does not require CT of head at this time. VITAL SIGNS are WNL, patient is afebrile Ordered pain medication, imaging, labs. ER COURSE: Reviewed previous charts, do to chronicity of symptoms, do not believe patient requires repeat labs at this time. Consult with Dr. Curtis, agrees with assessment and plan. Pain medication provided. Imaging ordered. Patient observed resting in bed, in no acute distress, nontoxic appearing. CT lumbar spine shows DJD, spondylolysis and foraminal stenosis per the preliminary reading. Provided a copy of CT report to patient. informed patient current symptoms and continue symptoms likely related to stenosis and DJD. Instructed patient to follow-up with PCP. Followup with pain management and/or PT. Request referral from PCP. Followup with PCP for further MRI and/or CT imaging as needed. Reapplied splint to right little finger, she denies acute injury, do not believe patient needs repeat x-rays hand. Instructed patient to follow-up with orthopedist further treatment and follow-up. following application of splint, patient has good alignment and is neurovascularly intact. Patient stable for outpatient followup, instructed to followup with PCP. patient reports feeling better, observed ambulating around the ER without difficulty. Fall precautions given to patient. Instructed patient to return to ER for new or worsening of symptoms. DISCHARGE: -Rx provided for Tylenol At this time pt. is stable for d/c to home. At this time patient is resting comfortably, in no acute distress, nontoxic appearing, smiling and talking without difficulty. Will provide printed patient care instructions, and any necessary prescriptions. Patient instructed to follow with primary care provider for further treatment and referral as needed. Care plan and follow up instructions have been discussed with the patient prior to discharge. Patient reports understanding and agreement to treatment plan. Patient questions asked and answered. ER precautions given, patient instructed to return to ER immediately for any new or worsening of symptoms. - Please note that this Emergency Department Report was dictated using [employer] technology software, occasionally this can lead to erroneous entry secondary to interpretation by the dictation equipment. CT/MRI/US Diagnostic Results CT/MRI/US Diagnostic Results : Imaging Test Ordered: CT lumbar spine Impression Lumbar vertebral height and alignment are within normal limits. No evidence of lumbar vertebral fracture or dislocation. Multilevel lumbar disc disease, spondylosis and facet joint arthropathy. Findings are most prominent at the L4-5 and L5-S1 levels where there is evidence of mild central spinal stenosis and moderate to severe bilateral neural foraminal stenosis. Mild focal ectasia distal abdominal aorta measuring 2.7 cm in maximum AP diameter without significant aneurysmal dilatation. Probable left renal cysts Last Vital Signs Date Time Temp Pulse Resp B/P (MAP) Pulse Ox O2 Delivery O2 Flow Rate FiO2 04/24/18 14:41 97.2 78 20 134/82 98 Room Air 97.2 Disposition: HOME, SELF-CARE Condition: Stable Scripts Acetaminophen* (TYLENOL EXTRA STRENGTH*) 500 Mg Tablet 500 MG ORAL Q8H PRN for Prn Headache/Temp > 101, #30 TAB 0 Refills Prov: Ronen Copeland 04/24/18 Patient Instructions: Degenerative Disk Disease, Fall Prevention in the Home, [id number], Spondylolysis With Rehab-SportsMed Additional Instructions: Patient instructed to follow up with primary care provider 3-5 and discuss further referral and imaging at that time. Patient instructed on rest, ice and heat. Do not take muscle relaxant prior to drinking, driving, or operating heavy machinery. Take medications as directed. Patient questions asked and answered. ER precautions given, patient instructed to return to ER immediately for any new or worsening of symptoms. Ronen Copeland Apr 24, 2018 15:29
[2018-04-24] MEDS ORDERED: Acetaminophen 500mg (ES) tab ORAL ONE (15:30)
[2018-04-24] MEDS ORDERED: TYLENOL EXTRA500 MG ORAL (17:16)
[2018-04-24 17:35] VITALS: BP 134/82
--- NOTE | 2018-04-25 10:46 | Diagnostic Imaging Report ---
Indications: Weakness and back and bilateral legs, trauma Technique: Spiral acquisitions obtained through the lumbar spine. Multiplanar reconstructions were generated. No IV contrast utilized. Total dose length product 712.48 mGycm. CTDIvol(s) 19.21 mGy. Dose reduction achieved using automated exposure control Comparison: none Findings: There is slight posterior offset of L5 on S1. Bony alignment is otherwise normal. There is degenerative disc narrowing with vacuum formation at L5-S1. The remaining disc spaces are preserved. The vertebral body heights are preserved. No acute fractures. No dislocations. There is bilateral sacroiliac joint degenerative change. At L4-5, facet arthrosis results in mild narrowing of the right neural foramen. No significant disc bulge or protrusion or spinal stenosis. At L5-S1, facet arthrosis and posterior osteophyte formation results in moderate narrowing of the bilateral neural foramina. No significant disc bulge or protrusion or spinal stenosis. At the remaining disc levels, no significant disc bulge or protrusion, spinal stenosis, or neural foraminal stenosis. Incidentally noted is colonic diverticulosis. The aorta demonstrates focal saccular ectasia distally, not quite aneurysmal. The iliac arteries are somewhat ectatic. 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 There are multiple left renal cysts, largest measuring 3 cm diameter Impression: No acute bony trauma Moderate neural foraminal narrowing at L5-S1 bilaterally. Other degenerative changes as detailed above Other findings as noted, including saccular ectasia of the distal abdominal aorta, calcified right renal artery aneurysm, colonic diverticulosis, left renal cysts This essentially agrees with the preliminary interpretation provided by [facility] telerad[facility] service The CT scanner at [facility] is accredited by the [employer] and the scans are performed using protocols designed to limit radiation exposure to as low as reasonably achievable to attain images of sufficient resolution adequate for diagnostic evaluation.
== END 2018-04-24 17:45 | disposition home or self-care (01) ==
LOC: EDBD 14:25 → EMR 17:31
DX: M51.36 Other intervertebral disc degeneration, lumbar region (principal); M48.061 Spinal stenosis, lumbar region without neurogenic claudication; M47.816 Spondylosis without myelopathy or radiculopathy, lumbar region; S69.91XA Unspecified injury of right wrist, hand and finger(s), initial encounter; Z86.73 Personal history of transient ischemic attack (TIA), and cerebral infarction without residual deficits; H54.62 Unqualified visual loss, left eye, normal vision right eye; Z88.2 Allergy status to sulfonamides; Z88.8 Allergy status to other drugs, medicaments and biological substances; W18.30XA Fall on same level, unspecified, initial encounter; Z91.81 History of falling; Y93.01 Activity, walking, marching and hiking; Y92.89 Other specified places as the place of occurrence of the external cause; R29.6 Repeated falls
CPT/HCPCS: 72131; 99284

== ENCOUNTER 2018-05-21 16:17 | Emergency (ER) | payer MEDICARE, MEDICAID ==
[~2018-05-21] VITALS: Ht 177.8 cm; Wt 81.6 kg
[2018-05-21 16:12] VITALS: BP 126/85
[~2018-05-21 16:17] MED LIST changes: -CEPHALEXIN500 MG ORAL; -Cephalexin 500mg cap ORAL ONE
[2018-05-21] MEDS ORDERED: IBUPROFEN600 MG ORAL (17:35)
[2018-05-21 18:10] VITALS: BP 138/88
[2018-05-21 18:15] VITALS: BP 126/85
[2018-05-21] MEDS ORDERED: CEPHALEXIN500 MG ORAL (21:55)
--- NOTE | 2018-05-23 07:07 | Emergency Room Report ---
History of Present Illness General Chief Complaint: Multiple Trauma/Fall Source: Patient, EMS Present Illness HPI Patient is a 72-year-old male brought in by EMS after increased bilateral foot pain. Patient reported having similar symptoms in the past. Patient reports having prior history of rheumatoid arthritis. He states that he's been on medications for pain. He cannot recall the names. The patient denies any severe headache. Patient is not currently taking steroids. He denies any fever. 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 Hx Cerebrovascular Accident: Yes Review of Systems All Other Systems: negative except mentioned in HPI Physical Exam Vital Signs Date Time Temp Pulse Resp B/P (MAP) Pulse Ox O2 Delivery O2 Flow Rate FiO2 05/21/18 16:03 98.8 100 16 122/92 98 Room Air 98.8 General Appearance: well appearing, no apparent distress, Chronically Ill Head: normocephalic, atraumatic Eyes: bilateral eye other - left eye blind ENT: hearing grossly normal, normal voice Neck: supple, limited range of motion Respiratory: no respiratory distress, speaking full sentences Cardiovascular #1: normal inspection, no edema Musculoskeletal: non-tender, decreased range of mation, other - no swelling Neurologic: normal inspection, alert, oriented x3, responsive, leave coordinator III-XII nml as tested, normal gait Psychiatric: mood/affect normal Skin: no rash Medical Decision Making Diagnostic Impression: Primary Impression: Chronic pain Additional Impression: Rheumatoid arthritis ER Course Patient presented for low back pain.Differential diagnosis included but was not limited to herniated disc, cauda equina syndrome, abdominal aortic aneurysm, perforated ulcer, spinal epidural abscess, spinal stenosis, lumbar fracture, metastatic lesion, pyelonephritis. Patient has a benign exam and does not appear to require any further imaging or laboratory testing at this time. The patient was given medications for pain. The patient is advised to follow-up with his primary care physician.The patient is advised to follow up with primary care doctor in 1-2 days. Patient is advised to return if any worsening condition or if any changes in status that are concerning. This report is dictated with [employer] software which may occasionally lead to discrepancies related to use of this software. Last Vital Signs Date Time Temp Pulse Resp B/P (MAP) Pulse Ox O2 Delivery O2 Flow Rate FiO2 05/21/18 18:15 98.8 91 16 126/85 95 Room Air 98.8 Status: improved Disposition: HOME, SELF-CARE Condition: Stable Scripts Ibuprofen* (MOTRIN*) 600 Mg Tablet 600 MG ORAL Q6H PRN for For Pain, #20 TAB Prov: Gerald Gibson MD 05/21/18 Referrals: NOT CHOSEN IPA/MD,REFERRING (PCP) Patient Instructions: Back Pain, Adult Gerald Gibson MD May 23, 2018 07:07
== END 2018-05-21 18:15 | disposition home or self-care (01) ==
LOC: EDBD 16:17 → EMR 16:48
DX: G89.29 Other chronic pain (principal); M06.9 Rheumatoid arthritis, unspecified; I10 Essential (primary) hypertension; E11.9 Type 2 diabetes mellitus without complications; H54.42A3 Blindness left eye category 3, normal vision right eye; Z86.73 Personal history of transient ischemic attack (TIA), and cerebral infarction without residual deficits; Z88.2 Allergy status to sulfonamides; Z88.8 Allergy status to other drugs, medicaments and biological substances; Z91.048 Other nonmedicinal substance allergy status
CPT/HCPCS: 99283

== ENCOUNTER → 2018-05-21 | Emergency (ER) | payer MEDICARE, MEDICAID ==
[~2018-05-21] VITALS: Ht 175.3 cm; Wt 82.1 kg
[~2018-05-21] MED LIST changes: +CEPHALEXIN500 MG ORAL; +Cephalexin 500mg cap ORAL ONE; +TYLENOL EXTRA500 MG ORAL
[2018-05-21 20:45] VITALS: BP 131/81
[2018-05-21 21:42] LABS: APPEARANCE,URINE CLEAR; BILIRUBIN, URINE NEGATIVE (NEGATIVE); COLOR,URINE BROWN; GLUCOSE, URINE (UA) 3+ (NEGATIVE); KETONES,URINE 1+ (NEGATIVE); LEUKOCYTE ESTERASE ,URINE 1+ (NEGATIVE); NITRITE,URINE NEGATIVE (NEGATIVE); PH,URINE 5 (4.5-8.0); PROTEIN,URINE 2+ (NEGATIVE); UROBILINOGEN,URINE 8 MG/DL (0.0-1.0)
[2018-05-21 22:05] VITALS: BP 129/78
--- NOTE | 2018-05-23 07:10 | Emergency Room Report ---
History of Present Illness General Chief Complaint: Pain Source: Patient, Medical Record, EMS Present Illness HPI Patient is a 72-year-old male brought in by EMS after recurrent leg pain. Patient recently been seen by me. The patient states that he had been having some low back pain. He reports having prior history of rheumatoid arthritis. Patient states that he was walking in the street when pain worsen. The patient was brought in from [facility]. Patient denies any numbness or weakness to his extremities. Patient been ambulatory without assistance. He denied any vomiting or urinary symptoms. Allergies: Coded Allergies: SULFA (SULFONAMIDE ANTIBIOTICS) (Verified Allergy, Mild, 12/19/17) SERTRALINE (Unverified Allergy, Unknown, 04/24/18) SULFUR (Unverified Allergy, Unknown, 12/19/17) Patient History Reviewed Nursing Documentation: PMH: Agreed; PSxH: Agreed Nursing Documentation-PMH Past Medical History: No History, Except For Hx Cardiac Problems: No - ARTHRITIS Hx Hypertension: Yes Hx Diabetes: Yes Hx Neurological Problems: Yes - R. Arthritis, Blind Left Eye Hx Cerebrovascular Accident: Yes Review of Systems All Other Systems: negative except mentioned in HPI Physical Exam Vital Signs Date Time Temp Pulse Resp B/P (MAP) Pulse Ox O2 Delivery O2 Flow Rate FiO2 05/21/18 20:25 99.2 86 18 131/81 98 Room Air 99.1 General Appearance: well appearing, no apparent distress, alert, GCS 15 Head: normocephalic, atraumatic Eyes: bilateral eye other - left eye blind ENT: hearing grossly normal, normal voice Neck: full range of motion, supple Respiratory: no respiratory distress, speaking full sentences Cardiovascular #1: normal inspection Gastrointestinal: normal inspection Musculoskeletal: normal inspection, decreased range of mation Neurologic: normal inspection, alert, oriented x3, normal gait Psychiatric: mood/affect normal Skin: no rash Medical Decision Making Diagnostic Impression: Primary Impression: Rheumatoid arthritis Additional Impressions: Chronic pain Cocaine abuse ER Course Patient presented for back pain. Differential diagnosis included but was not limited to herniated disc, cauda equina syndrome, abdominal aortic aneurysm, perforated ulcer, spinal epidural abscess, spinal stenosis, lumbar fracture, metastatic lesion, pyelonephritis. Patient has a benign exam and does not appear to require any further imaging or laboratory testing at this time. Urinalysis showed evidence of minimal infection. Urine drug screen is positive for cocaine. The patient is advised drug sensation. Patient given prescription for Keflex after being given Keflex in the emergency department.The patient is advised to follow up with primary care doctor in 1-2 days. Patient is advised to return if any worsening condition or if any changes in status that are concerning. This report is dictated with [employer] sample puller software which may occasionally lead to discrepancies related to use of this software. Labs Test 05/21/18 21:30 Urine Color Brown Urine Appearance Clear Urine pH 5 (4.5-8.0) Urine Specific [place] 1.025 (1.005-1.035) Urine Protein 2+ (NEGATIVE) Urine Glucose (UA) 3+ (NEGATIVE) Urine Ketones 1+ (NEGATIVE) Urine Occult Blood Negative (NEGATIVE) Urine Nitrite Negative (NEGATIVE) Urine Bilirubin Negative (NEGATIVE) Urine Urobilinogen 8 MG/DL (0.0-1.0) Urine Leukocyte Esterase 1+ (NEGATIVE) Urine RBC 0-2 /HPF (0 - 0) Urine WBC 2-4 /HPF (0 - 0) Urine Squamous Epithelial Cells None /LPF (NONE/OCC) Urine Bacteria Few /HPF (NONE) Urine Opiates Screen Negative (NEGATIVE) Urine Barbiturates Screen Negative (NEGATIVE) Phencyclidine (PCP) Screen Negative (NEGATIVE) Urine Amphetamines Screen Negative (NEGATIVE) Urine Benzodiazepines Screen Negative (NEGATIVE) Urine Cocaine Screen Positive (NEGATIVE) Urine Marijuana (THC) Screen Negative (NEGATIVE) Last Vital Signs Date Time Temp Pulse Resp B/P (MAP) Pulse Ox O2 Delivery O2 Flow Rate FiO2 05/21/18 22:05 97.7 85 16 129/78 99 Room Air Status: improved Disposition: HOME, SELF-CARE Condition: Stable Scripts Cephalexin* (KEFLEX*) 500 Mg Capsule 500 MG ORAL EVERY 6 HOURS, #28 CAP Prov: Gerald Gibson MD 05/21/18 Referrals: NON PHYSICIAN (PCP) Patient Instructions: Chronic Back Pain Gerald Gibson MD May 23, 2018 07:10
== END | disposition home or self-care (01) ==
LOC: EDUNIT# 20:24 → EDBD 20:31 → EMR 20:41
DX: M06.9 Rheumatoid arthritis, unspecified (principal); G89.29 Other chronic pain; F14.10 Cocaine abuse, uncomplicated; M54.5 Low back pain; Z88.2 Allergy status to sulfonamides; Z88.8 Allergy status to other drugs, medicaments and biological substances; Z91.048 Other nonmedicinal substance allergy status; H54.42A3 Blindness left eye category 3, normal vision right eye; Z86.73 Personal history of transient ischemic attack (TIA), and cerebral infarction without residual deficits
CPT/HCPCS: 80307; 81003; 99283

== ENCOUNTER 2018-06-28 00:28 | Emergency (ER) | payer MEDICARE, MEDICAID ==
[~2018-06-28] VITALS: Ht 177.8 cm; Wt 81.6 kg
[2018-06-28 00:24] VITALS: BP 109/71
[~2018-06-28 00:28] MED LIST changes: +CEPHALEXIN500 MG ORAL
--- NOTE | 2018-06-28 00:58 | Emergency Room Report ---
History of Present Illness General Chief Complaint: Pain Source: Patient Present Illness HPI Is a 72-year-old male who has a history of alcohol and drug abuse. He also has history of chronic pain. He presents with chief complaint of "same old shit." He complaining of lower extremity pain. This is a same pain as before. [place] Went to the hospital for it. Numerous x-rays. Pain is 9 out of 10. Worse with walking. He called 911. Per EMS he walks to the ambulance without difficulty. Allergies: Coded Allergies: SULFA (SULFONAMIDE ANTIBIOTICS) (Verified Allergy, Mild, 12/19/17) SERTRALINE (Unverified Allergy, Unknown, 04/24/18) SULFUR (Unverified Allergy, Unknown, 12/19/17) Patient History Past Medical History: see triage record, old chart reviewed, HTN Past Surgical History: other Pertinent Family History: none Social History: Reports: smoking, alcohol use, drug use Immunizations: other Reviewed Nursing Documentation: PMH: Agreed; PSxH: Agreed Nursing Documentation-PMH Hx Cardiac Problems: No Hx Hypertension: Yes Hx Diabetes: No Hx Cerebrovascular Accident: Yes - "5 ministrokes" no defecits Review of Systems Eye: Denies: eye pain, blurred vision ENT: Denies: ear pain, nose congestion, throat swelling Respiratory: Denies: cough, shortness of breath Cardiovascular: Denies: chest pain, palpitations Gastrointestinal: Denies: abdominal pain, diarrhea, nausea, vomiting Musculoskeletal: Reports: muscle pain; Denies: back pain, joint pain Skin: Denies: rash Neurological: Denies: headache, numbness Endocrine: Denies: increased thirst, increased urine Hematologic/Lymphatic: Denies: easy bruising All Other Systems: negative except mentioned in HPI Physical Exam Vital Signs Date Time Temp Pulse Resp B/P (MAP) Pulse Ox O2 Delivery O2 Flow Rate FiO2 06/28/18 00:13 97.9 82 18 109/71 98 Room Air 97.9 vitals normal Sp02 EP Interpretation: reviewed, normal General Appearance: well appearing, no apparent distress, alert Head: normocephalic, atraumatic Eyes: right eye PERRL, right eye EOMI; left eye other - left eye is blind ENT: hearing grossly normal, normal pharynx Neck: full range of motion, supple, no meningismus Respiratory: chest non-tender, lungs clear, normal breath sounds Cardiovascular #1: regular rate, rhythm, no murmur Gastrointestinal: normal bowel sounds, non tender, no mass, no organomegaly, no bruit, non-distended Musculoskeletal: back normal, gait/station normal, normal range of motion Neurologic: alert, oriented x3 Psychiatric: mood/affect normal Skin: warm/dry Medical Decision Making Diagnostic Impression: Primary Impression: Chronic pain Qualified Codes: G89.4 - Chronic pain syndrome Additional Impressions: Cocaine abuse Neuropathy ER Course Patient presents with leg pain. This is chronic in nature. No trauma to warrant x-rays. No evidence of DVT. We'll discharge home. Last Vital Signs Date Time Temp Pulse Resp B/P (MAP) Pulse Ox O2 Delivery O2 Flow Rate FiO2 06/28/18 00:24 97.9 82 18 109/71 98 Room Air 97.9 Status: unchanged Disposition: HOME, SELF-CARE Condition: Stable Scripts Ibuprofen* (MOTRIN*) 600 Mg Tablet 600 MG ORAL THREE TIMES A DAY, #30 TAB 0 Refills Prov: DARWIN MAHER M.D. 06/28/18 Additional Instructions: Stop using drugs. Follow-up with your DrLalitha in 7 days. Return if worse. DARWIN MAHER M.D. Jun 28, 2018 00:58
[2018-06-28] MEDS ORDERED: IBUPROFEN600 MG ORAL (01:00)
[2018-06-28 05:24] VITALS: BP 119/75
[2018-06-28 08:50] VITALS: BP 119/75
== END 2018-06-28 08:51 | disposition home or self-care (01) ==
LOC: EDBD 00:28 → EMR 03:22
DX: G89.29 Other chronic pain (principal); G62.9 Polyneuropathy, unspecified; F14.10 Cocaine abuse, uncomplicated; I10 Essential (primary) hypertension; Z88.2 Allergy status to sulfonamides; Z88.8 Allergy status to other drugs, medicaments and biological substances
CPT/HCPCS: 99283